=== PATIENT | female | born 1960 | race Caucasian/White ===

== ENCOUNTER 2023-06-30 01:12 | Day surgery (SDC) | payer BC, SELFPAY ==
[2023-06-21 11:16] VITALS: BMI 27.5
--- NOTE | 2023-06-28 10:14 | SUR.PREOP ---
Patient called regarding upcoming procedure. Reviewed preop instructions, appointment times, and procedure prep.
--- NOTE | 2023-06-29 18:33 | PM.HPGS ---
History of Present Illness History of Present Illness Consent: Risks, benefits, and alternatives have been discussed and questions answered. Patient agrees to proceed with procedure. Chief complaint: Other fecal abnormalities Narrative: Leeanne Lewis is a 63 year old female referred for colonoscopy. She was found to have positive stool Hemoccult test. Review of Systems Review of Systems: All systems reviewed & are unremarkable except as noted in HPI and below PMFSH Past Medical History Medical History High cholesterol History of blood transfusion Hypothyroid Lipoma Surgical History Surgical History History of hysterectomy with oophorectomy 2010 S/P excision of lipoma Excision 2 cm left upper arm mass 07/03/22 Family History Family History Father CHF (congestive heart failure) Social History Social History Smoking status: Never smoker Alcohol intake: never Substance use type: does not use Lack of Transportation: No Lack of Food: Never True Current Housing: I Do Not Have Housing Concerned About Future Housing: No Difficulty Paying Gas/Electric Bills: No Difficulty Paying for Meds: No Currently Unemployed: No Living arrangements: with family Occupation/Education: occupation Additional occupation/education comments: [employer] Spiritual care concerns: No Meds Home Medications and Allergies Home Medications Medication Instructions Recorded Confirmed Type cetirizine 10 mg disintegrating 10 mg PO DAILY 05/27/22 06/30/23 History tablet (Children's Zyrtec Allergy) ferrous sulfate 325 mg (65 mg 325 mg PO DAILY 05/27/22 06/30/23 History iron) tablet (iron) vit C 250 mg-E 90 mg-zinc 40 1 cap PO DAILY 05/27/22 06/30/23 History mg-copper 2 mg-lutein 5 mg-zeaxan capsule (Eye Multivitamin (lutein-zeaxan)) atorvastatin 20 mg tablet 20 mg PO DAILY #90 tabs 06/01/23 06/30/23 Rx methimazole 10 mg tablet 10 mg PO DAILY #90 tabs 06/01/23 06/30/23 Rx nitrofurantoin macrocrystal 50 mg 50 mg PO DAILY #90 caps 06/01/23 06/30/23 Rx capsule calcium carbonate 200 mg calcium 400 mg PO DAILY 06/21/23 06/30/23 History (500 mg) chewable tablet (Tums) naproxen sodium 220 mg capsule 220 mg PO BID 06/21/23 06/30/23 History (Aleve) Allergies Allergy/AdvReac Type Severity Reaction Status Date / Time No Known Allergies Allergy Verified 06/30/23 10:41 Exam Resp: Auscultation: clear to auscultation bilaterally Cardio: Rate: regular rate Rhythm: regular rhythm GI: GI Palp: Yes Soft to palpation and No Tenderness to palpation present (GI) Assessment and Plan Assessment and plan (1) Blood in stool: Code(s): K92.1 - Melena Status: Acute Assessment and Plan: Colonoscopy with possible biopsy or polypectomy or cautery or injection of substances.
[2023-06-30 10:43] VITALS: BP 117/59; PULSE 72; RESP 16; TEMP 36.2; O2SAT 100; BMI 26.7
[2023-06-30] MEDS: LACTATED RINGERS 1,000 ML 150 ML IV CONT (10:46)
[2023-06-30 11:40] VITALS: BP 94/57; PULSE 75; RESP 22; O2SAT 100
[2023-06-30 11:50] VITALS: BP 113/56; PULSE 70; RESP 22; O2SAT 100
[2023-06-30 12:00] VITALS: BP 123/67; PULSE 68; RESP 17; O2SAT 100
== END 2023-06-30 12:10 | disposition home or self-care (01) ==
PROVIDERS: PCP Family Medicine Adolescent Medicine; Visit Provider Internal Medicine Gastroenterology
PROC: 0DJD8ZZ Inspection of Lower Intestinal Tract, Via Natural or Artificial Opening Endoscopic (ICD-10-PCS; CPT 45378; principal; 2023-06-30 11:30)
DX: K64.8 Other hemorrhoids (principal); E78.00 Pure hypercholesterolemia, unspecified; E03.9 Hypothyroidism, unspecified
CPT/HCPCS: 45378; J2704; J7120